=== PATIENT | male | born 1970 | race Caucasian/White ===

== ENCOUNTER 2023-02-17 01:39 | Emergency (ER) | payer OTHER ==
[~2023-02-17] VITALS: Ht 180.3 cm; Wt 90.7 kg
[~2023-02-17 01:39] MED LIST: CEPH500 PO; IBUP600 PO
[2023-02-17 02:30] VITALS: BP 150/90
[2023-02-17] MEDS ORDERED: Robaxin750 MG PO (03:44)
== END 2023-02-17 03:54 | disposition home or self-care (01) ==
LOC: ER 01:39
DX: S46.911A Strain of unspecified muscle, fascia and tendon at shoulder and upper arm level, right arm, initial encounter (principal); M62.838 Other muscle spasm; F17.200 Nicotine dependence, unspecified, uncomplicated; W13.0XXA Fall from, out of or through balcony, initial encounter
CPT/HCPCS: 99283; A9270